=== PATIENT | male | born 1975 | race Caucasian/White ===

== ENCOUNTER 2024-11-23 06:45 | Day surgery (SDC) | payer MEDICAID, SELFPAY ==
[2024-11-22 12:19] VITALS: BMI 28.0
[2024-11-23] VITALS (10 sets, daily range): BP systolic 108–129; BP diastolic 69–80; PULSE 64–79; RESP 11–18; TEMP 36.4–36.6; O2SAT 92–96; BMI 28.2
[2024-11-23] MEDS: fentaNYL CIT INJ 50 mCg/ML AMP 2ML (ASD USE ONLY) IV (08:22)
[2024-11-23] MEDS: MIDAZOLAM INJ 1 MG/ML VIAL 2 ML (ASD USE ONLY) 2 MG IV (08:22)
== END 2024-11-23 09:18 | disposition home or self-care (01) ==
PROVIDERS: PCP Nurse Practitioner Family; Referring Provider Surgery; Visit Provider Surgery
PROC: 0DBE8ZX Excision of Large Intestine, Via Natural or Artificial Opening Endoscopic, Diagnostic (ICD-10-PCS; CPT 45380; principal; 2024-11-23 08:00)
DX: Z12.11 Encounter for screening for malignant neoplasm of colon (principal); K57.30 Diverticulosis of large intestine without perforation or abscess without bleeding
CPT/HCPCS: 45378; J2250; J3010